=== PATIENT | female | born 1965 | race Caucasian/White ===

== ENCOUNTER 2017-04-27 15:32 | Emergency (ER) | payer OTHER ==
--- OUTSIDE RECORDS SUMMARY | 2017-04-27 18:01 | XMS REPORT ---
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 Fenstermacher, Active RPA-C Onset: 07/03/2016 Exacerbation of moderate Nano S. Fenstermacher, Active persistent asthma RPA-C Onset: 07/03/2016 Allergic rhinitis due to pollen Nano S. Fenstermacher, Active RPA-C Onset: 07/03/2016 Allergic rhinitis Nano S. Fenstermacher, Active RPA-C Onset: 10/03/2016 Uncomplicated moderate persistent Nano S. Fenstermacher, Active asthma RPA-C Onset: 10/03/2016 Allergy to peanuts Nano S. Fenstermacher, Active RPA-C Onset: 10/03/2016 Allergy to nut Nano S. Fenstermacher, Active RPA-C Onset: 01/13/2017 Acute sinusitis FELICIA Ybarra Active Family History Date Family Member(s) Problem(s) Comments General Unknown Social History Type Date Description Comments Smoke-Free Home is smoke-free Smoking Patient has never smoked Allergies, Adverse Reactions, Alerts Date Description Reaction Status Severity Comments 07/03/2016 Flagyl active 07/03/2016 Cipro active 07/03/2016 Morphine active 12/29/2012 NKDA inactive Medications Medication Date Status Form Strength Qnty SIG Indications Ordering Provider Mometasone 10/03 Active Suspension 50mcg/Act 17gm Iuka two J30.1 Christopher Furoate sprays in Naga Graves MD each nostril once daily. Albuterol 08/13 Active Nebulizer (2.5mg/3M 75ml 1 vial Christopher Sulfate L) 0.083% every 4h Naga Graves MD as needed Montelukast 05/20 Active Tablets 10mg 90tab Take 1 Doroteo Sodium s Tablet By BLANCHE Ambrocio Mouth Daily In The Evening Proair HFA 08/27 Active Aerosol 108(90Bas 3unit Inhale 2 e) s Puffs By Naga Graves MD mcg/Act Inhalatio n Route Every 4 Hours as Needed Levocetirizine 03/31 Active Tablets 5mg 90tab Take 1 Dihydrochloride s tablet (5 Naga Graves MD mg) by oral route once daily at bedtime. Dulera 06/27 Active Aerosol 200-5mcg/ 3unit Inhale 2 Act s Puffs By Naga Graves MD Inhalatio n Route 2 Times Per Day In The Morning And Evening. Rinse Mouth After Use. Epipen 2-Fei 03/29 Active Solution 0.3mg/0.3 2unit Inject Auto-Injec ML s 0.3 Naga Graves MD t millilite r (0.3 mg) by intramusc ular route once as needed for anaphylax is Levothyroxine Active Tablets 75mcg take 1 Unknown Sodium /0000 tablet (75 mcg) by oral route once daily Lexapro Active Tablets 10mg take one Unknown /0000 tablet by mouth nightly at bedtime Azithromycin 01/13 Hx Tablets 250mg 6tabs take 2 tabs the Naga Graves MD - first day 04/08 then tab x 4 days. Prednisone 01/09 Hx Tablets 5mg 60tab 6 tablets s (30 mg) Naga Graves MD - by mouth 04/08 twice day x 5 days Prednisone 08/13 Hx Tablets 5mg 60tab 6 tablets J45.41 s (30 mg) Naga Graves MD - by mouth 10/03 twice day x 5 days Zithromax Z-Fei 07/03 Hx Tablets 250mg 1Pak Take as J20.9 directed. Naga Graves MD - 10/03 Prednisone 07/03 Hx Tablets 10mg 30tab Take 3 J20.9 s tablets Naga Graves MD - by mouth 10/03 twice day for 5 days. Take with food. Prednisone 06/21 Hx Tablets 10mg 30tab Take 3 s tablets Naga Graves MD - by mouth 07/03 twice day for 5 days. Take with food. Singulair 03/27 Hx Tablet 10mg 90tab take 1 , (Montelukast) s tablet BLANCHE Ambrocio - (10 mg) 05/20 by oral route once daily in the evening Advair Diskus Hx Aerosol 250-50mcg inhale 1 /Dose puff by - inhalatio 07/03 n route times per day in the morning and evening approxima tely 12 hours apart Vital Signs Date Vital Result Comment 04/08/2017 BP Systolic 106 mmHg BP Diastolic 86 mmHg Height 62 inches 5'2" Weight 110.00 lb BMI (Body Mass Index) 20.1 kg/m2 Heart Rate 65 /min Respiratory Rate 9 /min Body Temperature 98.2 F O2 % BldC Oximetry 98 % 01/13/2017 BP Systolic 124 mmHg BP Diastolic 84 mmHg Height 62 inches 5'2" Weight 109.38 lb BMI (Body Mass Index) 20.0 kg/m2 Heart Rate 66 /min Respiratory Rate 10 /min Body Temperature 96.7 F O2 % BldC Oximetry 98 % 10/03/2016 BP Systolic 112 mmHg BP Diastolic 78 mmHg Height 62 inches 5'2" Weight 115.00 lb BMI (Body Mass Index) 21.0 kg/m2 Heart Rate 56 /min Respiratory Rate 10 /min Body Temperature 97.2 F O2 % BldC Oximetry 97 % 07/03/2016 BP Systolic 122 mmHg BP Diastolic 74 mmHg Height 62 inches 5'2" Weight 115.00 lb BMI (Body Mass Index) 21.0 kg/m2 Heart Rate 62 /min Respiratory Rate 18 /min Body Temperature 98.1 F O2 % BldC Oximetry 98 % 03/29/2014 BP Systolic 108 mmHg BP Diastolic 78 mmHg Height 62 inches Weight 115.00 lb Heart Rate 68 /min 09/21/2013 BP Systolic 118 mmHg BP Diastolic 80 mmHg Heart Rate 60 /min 08/24/2013 BP Systolic 112 mmHg BP Diastolic 78 mmHg Heart Rate 72 /min 07/27/2013 BP Systolic 116 mmHg BP Diastolic 72 mmHg Heart Rate 72 /min 12/29/2012 BP Systolic 119 mmHg BP Diastolic 76 mmHg Height 62 inches Weight 115.00 lb Heart Rate 63 /min Results Test Date Test Result H/L Range Note Order 04/08/2017 Nitric Oxide <pending> PFT Supplies <pending> PFT With Bronchodilator <pending> Order 01/13/2017 Nitric Oxide <pending> Procedures Date CPT Code Description Status 04/08/2017 62822 Nitric Oxide Gas Determination Completed 04/08/2017 79402 Bronchodilation Responsiveness Spirometry Pre/Post Completed Bronchodil Adm 01/13/2017 12210 Nitric Oxide Gas Determination Completed 01/13/2017 01005 Nitric Oxide Gas Determination Completed 10/03/2016 93540 Nitric Oxide Gas Determination Completed 10/03/2016 61793 Bronchodilation Responsiveness Spirometry Pre/Post Completed Bronchodil Adm 08/13/2016 52635 Nitric Oxide Gas Determination Completed 08/13/2016 53754 Bronchodilation Responsiveness Spirometry Pre/Post Completed Bronchodil Adm 07/03/2016 35225 Nitric Oxide Gas Determination Completed Encounters Type Date Location Provider CPT E/M Dx Office Visit 01/13/2017 3:00p FELICIA Hernandez 76904 J01.90 J45.40 J45.40 Office Visit 10/03/2016 3:30p BLANCHE Lin 46037 J45.40 J30.1 J30.89 Z91.010 Z91.018 Office Visit 08/13/2016 4:00[place] [address] J45.41 Office Visit 07/03/2016 8:30a Vonnie Menezes, [facility] [address]60 J20.9 J45.41 J30.1 J30.89 Plan of Care No Information Available
[2017-04-27 18:10] VITALS: BP 123/80
--- NOTE | 2017-04-27 18:39 | UC ---
Throat Pain/Nasal Devin HPI - HPI Summary HPI Summary: For about three weeks she has had ear pressure and congestion. The pressure is mainly on the left. There is no fever. There is some sinus pressure as well. No prior ear surgery. She has tried decongestants and is currently on nasal steroid. - History of Current Complaint Chief Complaint: UCRespiratory Stated Complaint: SINUS/EAR PAIN Time Seen by Provider: 04/27/17 18:02 Hx Obtained From: Patient ?: No Onset/Duration: Gradual Onset, Lasting Weeks Pain Intensity: 8 Cough: None Associated Signs & Symptoms: Negative: Dysphagia, Hoarseness, Sinus Discomfort, Nasal Discharge, Fever, Vomiting, Rash - Allergies/Home Medications Allergies/Adverse Reactions: Allergies Allergy/AdvReac Type Severity Reaction Status Date / Time ciprofloxacin Allergy Intermediate Vomiting Verified 04/27/17 18:03 metronidazole [From Flagyl] Allergy Intermediate Vomiting Verified 04/27/17 18: 03 Home Medications: Home Medications Albuterol HFA INHALER* [Ventolin HFA Inhaler*] 1 puff Q6HR PRN 04/27/17 [ History Confirmed 04/27/17] Escitalopram Oxalate [Lexapro 10 mg] 10 mg BEDTIME 04/27/17 [History Confirmed 04/27/17] Levothyroxine TAB* [Synthroid 75 MCG TAB*] 75 mcg DAILY 04/27/17 [History Confirmed 04/27/17] Mometasone Furoate [Nasonex] 1 spray DAILY 04/27/17 [History Confirmed 04/27/17] Mometasone/Formoter 100/5 MDI* [Dulera 100/5 MDI*] 1 puff BID 04/27/17 [History Confirmed 04/27/17] Montelukast Sodium TAB* [Singulair TAB*] 10 mg PO BEDTIME 04/27/17 [History Confirmed 04/27/17] PMH/Surg Hx/FS Hx/Imm Hx Previously Healthy: Yes - Surgical History Surgical History: Yes Surgery Procedure, Year, and Place: - Family History Known Family History: Positive: Other - NO related ear disease in the family - Social History Alcohol Use: Weekly Alcohol Amount: 3-4 drinks/week Substance Use Type: None Smoking Status (MU): Never Smoked Tobacco Review of Systems ENT: Ear Ache, Sinus Congestion All Other Systems Reviewed And Are Negative: Yes Physical Exam Triage Information Reviewed: Yes Appearance: Well-Appearing, No Pain Distress, Well-Nourished Vital Signs: Initial Vital Signs Temp 98.3 F 04/27/17 18:05 Pulse 58 04/27/17 18:05 Resp 16 04/27/17 18:05 BP 123/80 04/27/17 18:05 Pulse Ox 98 04/27/17 18:05 Vital Signs Reviewed: Yes Eye Exam: Normal Eyes: Positive: Conjunctiva Clear ENT: Positive: TM bulging, Uvula midline. Negative: TM dull, TM red, Tonsillar swelling, Tonsillar exudate, Trismus, Muffled voice, Sinus tenderness Neck: Positive: Supple, Nontender, No Lymphadenopathy Respiratory: Positive: Normal breath sounds, No respiratory distress, No accessory muscle use. Negative: Respiratory distress, Decreased breath sounds, Accessory muscle use, Crackles, Rhonchi, Stridor, Wheezing Cardiovascular: Positive: RRR, No Murmur, Pulses Normal, Brisk Capillary Refill Abdomen Description: Positive: No Organomegaly, Soft. Negative: Distended, Guarding Musculoskeletal: Positive: Strength Intact, ROM Intact, No Edema Neurological: Positive: Alert, Muscle Tone Normal. Negative: Fatigued Psychological: Positive: Age Appropriate Behavior Skin: Negative: rashes Throat Pain/Nasal Course/Dx - Course Assessment/Plan: Ear pressure. We discussed continued decongestants and nasal steroid. There is sinus pressure. She does have environmental allergies which may contribute. - Differential Dx/Diagnosis Provider Diagnoses: sinusitis. ear pressure Discharge - Discharge Plan Condition: Good Disposition: HOME Prescriptions: Amoxicillin PO (*) [Amoxicillin 500 MG CAP*] 500 mg PO TID #30 cap Patient Education Materials: Sinusitis (ED) Referrals: No Primary Care Phys,NOPCP [Primary Care Provider] -
[2017-04-27] MEDS ORDERED: Amoxicillin PO (*) 500 MG CAP PO ONE (18:46)
== END 2017-04-27 18:50 | disposition home or self-care (01) ==
LOC: UCCORT 15:32
DX: J32.9 Chronic sinusitis, unspecified (principal); H93.8X9 Other specified disorders of ear, unspecified ear; Z88.3 Allergy status to other anti-infective agents
CPT/HCPCS: 99212; A9270-GY; G0463